=== PATIENT | female | born 1955 | race Caucasian/White ===

== ENCOUNTER 2020-08-01 17:18 | Emergency (ER) | payer MEDICARE ==
--- NOTE | 2020-08-01 19:15 | ER Document Report ---
ED Extremity Problem, Upper - General Chief Complaint: Arm Pain Stated Complaint: RIGHT ARM INJURY Time Seen by Provider: 08/01/20 19:00 Primary Care Provider: HALEIGH LUNDBERG DO [ACTIVE STAFF] - Follow up as needed - HPI Notes: Patient is a 65 y/o female with no medical history who presents with mechanical fall and right arm pain. Patient states she was walking with her when she slipped and landed on her right outstretched arm. She is complaining of diffuse arm pain. She denies any preceding symptoms to her fall. She denies hitting her head or any loss of consciousness. - Related Data Allergies/Adverse Reactions: Penicillins Allergy (Verified 08/01/20 18:37) Past Medical History - General Information source: Patient - Social History Smoking Status: Never Smoker Frequency of alcohol use: None Drug Abuse: None Family History: Reviewed & Not Pertinent Patient has homicidal ideation: No Review of Systems - Review of Systems Constitutional: No symptoms reported EENT: No symptoms reported Cardiovascular: No symptoms reported Respiratory: No symptoms reported Gastrointestinal: No symptoms reported Genitourinary: No symptoms reported Female Genitourinary: No symptoms reported Musculoskeletal: See HPI Skin: No symptoms reported Hematologic/Lymphatic: No symptoms reported Neurological/Psychological: No symptoms reported Physical Exam - Vital signs Vitals: Temp Pulse Resp BP Pulse Ox 97.8 F 90 20 165/102 H 99 08/01/20 17:25 08/01/20 17:25 08/01/20 17:25 08/01/20 17:25 08/01/20 17:25 - Notes Notes: PHYSICAL EXAMINATION: GENERAL: Well-appearing, well-nourished and in no acute distress. HEAD: Atraumatic, normocephalic. EYES: sclera anicteric, conjunctiva are normal. ENT: Moist mucous membranes. NECK: Normal range of motion LUNGS: Normal work of breathing HEART: 2+ radial pulses bilaterally EXTREMITIES: Diffusely tender to the entire right arm. Sensation intact. Range of motion limited secondary to pain. Good cap refill. No pitting or edema. No cyanosis. NEUROLOGICAL: No focal neurological deficits. Moves all extremities spontaneously and on command. PSYCH: Normal mood, normal affect. SKIN: Warm, Dry, normal turgor, no rashes or lesions noted. Course - Re-evaluation Re-evalutation: Patient is a 65-year-old female with no medical history who presents with right arm pain after a mechanical fall. Vital signs are stable and within normal limits. On exam, right arm is diffusely tender with 2+ radial pulse and good cap refill. Forearm XR shows suspected nondisplaced radial head fracture. XRs of the humerus, elbow and hand are all negative. Patient placed in a posterior long-arm splint and sling and instructed to follow-up with orthopedics. Advised patient to take ibuprofen and Tylenol as needed for pain. Return precautions and follow-up instructions given. Patient understands and is in agreement with the plan. Patient will be discharged home. - Vital Signs Vital signs: Temp Pulse Resp BP Pulse Ox 98.2 F 82 18 147/87 H 98 08/01/20 21:13 08/01/20 21:13 08/01/20 21:13 08/01/20 21:13 08/01/20 21:13 - Diagnostic Test Radiology reviewed: Image reviewed, Reports reviewed Radiology results interpreted by me: Forearm X-Ray 08/01/20 19:03 IMPRESSION: Suspected nondisplaced radial head fracture. copyright 2010 [employer]- All Rights Reserved Hand X-Ray 08/01/20 19:03 IMPRESSION: Negative right hand films. copyright 2010 [employer]- All Rights Reserved Humerus X-Ray 08/01/20 19:03 IMPRESSION: No fracture Shoulder X-Ray 08/01/20 19:03 IMPRESSION: No acute process Procedures - Immobilization Right Arm Pre-Proc Neuro Vasc Exam: Normal Immobilizer type: Long arm posterior, Sling Performed by: PCT Post-Proc Neuro Vasc Exam: Normal Alignment checked and good: Yes Discharge - Discharge Clinical Impression: Right arm pain Radial head fracture, closed Qualifiers: Encounter type: initial encounter Laterality: right Condition: Stable Disposition: HOME, SELF-CARE Additional Instructions: Fractured Radius The bone called the radius is fractured. This type of fracture is typically caused by falling onto the outstretched hand. The fracture is not ser ious, however, and should heal well with adequate protection. Your physician's evaluation shows the bone is in good position to heal. A cast or splint is used to protect the fracture. For the first few days after the injury, the arm should be elevated and ice packed. Healing takes from three to eight weeks, depending on the age of the patient and the seriousness of the fracture. Your doctor has explained the treatment plan. It's important that you follow up as instructed to prevent complications. Call the doctor or return at once if severe pain or swelling occur, or if the hand becomes numb, swollen, or discolored. Referrals: HALEIGH LUNDBERG, DO [ACTIVE STAFF] - Follow up as needed
--- NOTE | 2020-08-01 20:24 | RADIOLOGY REPORT (SQ) ---
EXAM DESCRIPTION: SHOULDER RIGHT three VIEWS CLINICAL HISTORY: 65 years Female, fall, arm injury COMPARISON: None. FINDINGS: The glenohumeral joint is located. No acute fracture, subluxation or dislocation. The AC joint is intact. Visualized portion the right ribs are normal. Soft tissues are unremarkable. IMPRESSION: No acute process
--- NOTE | 2020-08-01 20:24 | RADIOLOGY REPORT (SQ) ---
EXAM DESCRIPTION: HUMERUS RIGHT, two views CLINICAL HISTORY: 65 years Female, fall, arm injury COMPARISON: None. FINDINGS: The humerus is intact. No definitive fracture is identified. The visualized portion of the elbow and shoulder joint are intact. No acute process. IMPRESSION: No fracture
--- NOTE | 2020-08-01 20:29 | RADIOLOGY REPORT (SQ) ---
EXAM DESCRIPTION: XR FOREARM 2 VIEWS COMPLETED DATE/TME: 08/01/2020 20:09 CLINICAL HISTORY: 65 years, Female, fall, arm injury COMPARISON: None. TECHNIQUE: AP and lateral views. FINDINGS: Question nondisplaced hairline radial head fracture. Suspected at least mild joint effusion the right elbow. The radius and ulna are otherwise unremarkable. IMPRESSION: Suspected nondisplaced radial head fracture. copyright 2010 [employer]- All Rights Reserved
--- NOTE | 2020-08-01 20:31 | RADIOLOGY REPORT (SQ) ---
EXAM DESCRIPTION: XR HAND 3 OR MORE VIEWS COMPLETED DATE/TME: 08/01/2020 20:09 CLINICAL HISTORY: 65 years, Female, fall, arm injury COMPARISON: None. TECHNIQUE: Three views of the right hand. FINDINGS: No evidence for fracture dislocation the right hand. IMPRESSION: Negative right hand films. copyright 2010 [employer]- All Rights Reserved
[2020-08-01 21:14] VITALS: BP 147/87
== END 2020-08-01 21:32 | disposition home or self-care (01) ==
LOC: ER 17:18
DX: S52.121A Displaced fracture of head of right radius, initial encounter for closed fracture (principal); W01.0XXA Fall on same level from slipping, tripping and stumbling without subsequent striking against object, initial encounter; Z88.0 Allergy status to penicillin
CPT/HCPCS: 99284